=== PATIENT | male | born 1950 | race Caucasian/White ===

== ENCOUNTER 2020-11-05 11:56 | Day surgery (SDC) | payer MEDICARE, OTHER ==
[~2020-11-05] VITALS: Ht 177.8 cm; Wt 96.9 kg
[2020-11-05] MEDS ORDERED: METF500T27 PO (12:43)
[2020-11-05] MEDS ORDERED: METO25TA91 PO (12:43)
[2020-11-05] MEDS ORDERED: CELE200C PO (12:43)
[2020-11-05] MEDS ORDERED: LISI40TA PO (12:43)
[2020-11-05] MEDS ORDERED: AMLO-150 PO (12:43)
[2020-11-05] MEDS ORDERED: FENO145T19 PO (12:43)
[2020-11-05] MEDS ORDERED: EZET10TA70 PO (12:43)
[2020-11-05] MEDS ORDERED: LACTATED RINGERS 1,000 ML IV SCH (13:00)
[2020-11-05] MEDS ORDERED: ACETAMINOPHEN 500 MG TABLET PO ONE (13:00)
[2020-11-05] MEDS ORDERED: CHLORHEXIDINE 15 ML UDC MM ONE (13:00)
[2020-11-05 13:11] VITALS: BP 143/88
[2020-11-05] MEDS ORDERED: BUPIVACAINE/PF 0.5% ONE (13:49)
[2020-11-05] MEDS ORDERED: LIDOCAINE/PF 1%, 30ML ONE (13:50)
[2020-11-05] MEDS ORDERED: LIDOCAINE-MPF 2% ,5ML ONE (13:58)
[2020-11-05] MEDS ORDERED: GLYCOPYRROLATE 0.2MG/1ML, 5ML ONE (13:58)
[2020-11-05] MEDS ORDERED: FENTANYL PF 250 MCG/5ML ONE (13:58)
[2020-11-05] MEDS ORDERED: MIDAZOLAM 1 MG/ML, 2ML ONE (13:58)
[2020-11-05] MEDS ORDERED: PROPOFOL 10 MG/ML, 20ML ONE (13:58)
[2020-11-05] MEDS ORDERED: DEXAMETHASONE 4 MG/ML, 1ML ONE (13:58)
[2020-11-05] MEDS ORDERED: ROCURONIUM 10MG/ML,5ML ONE (13:58)
[2020-11-05] MEDS ORDERED: FENTANYL PF 100 MCG/2ML IV PRN (14:30)
[2020-11-05] MEDS ORDERED: LORazepam 2 MG/ML, 1ML IVPush PRN (14:30)
[2020-11-05] MEDS ORDERED: HALOPERIDOL 5 MG/ML IV PRN (14:30)
[2020-11-05] MEDS ORDERED: EPHEDRINE 50 MG/ML, 1ML IVPush PRN (14:30)
[2020-11-05] MEDS ORDERED: METHOCARBAMOL 1,000 MG in DEXTROSE 5% 100 ML IV PRN (14:30)
[2020-11-05] MEDS ORDERED: ALBUTEROL SULFATE 2.5 MG/3 ML NPPB PRN (14:30)
[2020-11-05] MEDS ORDERED: DIAZEPAM 5 MG/ML, 2ML IVPush PRN (14:30)
[2020-11-05] MEDS ORDERED: MIDAZOLAM 1 MG/ML, 2ML IV PRN (14:30)
[2020-11-05] MEDS ORDERED: LABETALOL 5MG/ML, 20ML IV PRN (14:30)
[2020-11-05] MEDS ORDERED: hydrALAzine 20 MG/ML, 1ML IV PRN (14:30)
[2020-11-05] MEDS ORDERED: KETOROLAC 30 MG/1 ML IVPush PRN (14:30)
[2020-11-05] MEDS ORDERED: HYDROmorphone 1 MG/ML, 1ML INJ IVPush PRN (14:30)
[2020-11-05] MEDS ORDERED: METOCLOPRAMIDE 5 MG/ML, 2ML IVPush PRN (14:30)
[2020-11-05] MEDS ORDERED: EPHEDRINE 50 MG/ML, 1ML IM PRN (14:30)
[2020-11-05] MEDS ORDERED: MEPERIDINE/PF 25MG/0.5ML IVPush PRN (14:30)
[2020-11-05] MEDS ORDERED: OXYcodone 5 MG/5 ML ORAL.SOL UDC PO PRN (14:30)
[2020-11-05] MEDS ORDERED: HYDROcodone/APAP 7.5-325MG/15ML UDC PO PRN (14:30)
[2020-11-05] MEDS ORDERED: ONDANSETRON 2MG/ML, 2ML IVPush PRN (14:30)
[2020-11-05] MEDS ORDERED: DIPHENHYDRAMINE 50 MG/ML, 1ML IVPush PRN (14:30)
[2020-11-05] MEDS ORDERED: CEFAZOLIN 1,000 MG ONE (14:45)
[2020-11-06] MEDS ORDERED: AMLODIPINE 5 MG TABLET PO SCH (09:00)
[2020-11-06] MEDS ORDERED: LISINOPRIL 40 MG TABLET PO SCH (09:00)
[2020-11-06] MEDS ORDERED: EZETIMIBE 10 MG TABLET PO SCH (09:00)
[2020-11-06] MEDS ORDERED: METOPROLOL SUCCINATE 25 MG TAB.ER.24H PO SCH (09:00)
[2020-11-06] MEDS ORDERED: FENOFIBRATE 145 MG TABLET PO SCH (09:00)
== END 2020-11-05 17:00 | disposition home or self-care (01) ==
LOC: OUT 11:56
PROVIDERS: ATTEND Urology
DX: N43.2 Other hydrocele (principal); I10 Essential (primary) hypertension; E11.9 Type 2 diabetes mellitus without complications; M19.90 Unspecified osteoarthritis, unspecified site; Z20.828 Contact with and (suspected) exposure to other viral communicable diseases; Z72.89 Other problems related to lifestyle; Z87.891 Personal history of nicotine dependence; Z79.899 Other long term (current) drug therapy; Z98.890 Other specified postprocedural states
CPT/HCPCS: 55040; 82962; 87635; 93005; C1729; J0690; J1100; J2250; J2704; J3010; J7120